=== PATIENT | male | born 1975 | race Caucasian/White ===

== ENCOUNTER 2022-10-07 01:09 | Emergency (ER) | payer OTHER, SELFPAY ==
[2022-10-07] VITALS (13 sets, daily range): BP systolic 158–234; BP diastolic 93–163; PULSE 76–96; RESP 18–26; O2SAT 94–98; BMI 37.5
--- NOTE | ~2022-10-07 | CT_ITS ---
EXAMINATION: CT HEAD WITHOUT CONTRAST CLINICAL INFORMATION: Left hemiparesis. COMPARISON: None. TECHNIQUE: Contiguous axial imaging was performed from the skull base to vertex without intravenous contrast. This CT examination was performed using dose optimization techniques as appropriate, variously including the following: * Automated exposure control * Adjustment of mA and/or kV according to patient size (this includes techniques or standardized protocols for targeted exams where dose is matched to indication/reason for exam; i.e. extremities or head) Use of iterative reconstruction technique DLP: 830 mGy-cm. FINDINGS: There is a prominent intraparenchymal hematoma involving the right frontal and temporal lobes. This is centered at the putamen. This measures 6.7 x 3 x 5 cm. There is significant mass effect with effacement of the frontal horn of the right lateral ventricle. There is leftward midline shift of 0.9 cm . No evidence of territorial infarction. Bryson to white matter differentiation is well preserved. No extra-axial fluid collections are identified. No hydrocephalus. No significant volume loss. The osseous structures and soft tissues are normal. The mastoid air cells and visualized portions of the paranasal sinuses are well aerated. CT/CT head for stroke IMPRESSION: Prominent right cerebral intraparenchymal hemorrhage with significant localized mass effect resulting in leftward midline shift. This critical result was discussed with Alfonso Beckham MD by telephone at 10/07/2022 1:24 AM and it was ascertained that the content and urgency of the report was understood at the time of direct communication.
--- NOTE | 2022-10-07 01:12 | ECG_ITS ---
Test Reason : skoke Blood Pressure : / mmHG Vent. Rate : 087 BPM Atrial Rate : 087 BPM P-R Int : 154 ms QRS Dur : 114 ms QT Int : 310 ms P-R-T Axes : 029 -29 130 degrees QTc Int : 373 ms Normal sinus rhythm Possible Left atrial enlargement Left ventricular hypertrophy with repolarization abnormality ( R in aVL , Lee product , Romhilt-Shearer ) Abnormal ECG No previous ECGs available Referred By: Alfonso Beckham Electronically Signed By:Star Moss
[2022-10-07 01:17] LABS: Glucose, Whole Blood 210 mg/dL (60-115)
[2022-10-07 01:21] LABS: Basophils Absolute Auto 0.1 X10*3/uL (0.0-0.2); Basophils Percent Auto 0.6 % (0-2); Eosinophils Absolute Auto 0.5 X10*3/uL (0.0-0.4); Eosinophils Percent Auto 3.1 % (0-4); Hematocrit 46.3 % (42.0-52.0); Hemoglobin 16.1 g/dl (14.0-18.0); Imm Gran Abs Auto 0.07 X10*3/uL (0.00-0.03); Imm Gran Pct Auto 0.4 % (0.0-0.4); Lymphocytes Absolute Auto 2.2 X10*3/uL (1.2-4.9); Lymphocytes Percent Auto 13.7 % (20-40); MANUAL DIFF FLAG SCAN; Mean Corpuscular HGB Conc 34.8 g/dl (31.0-36.0); Mean Corpuscular Hemoglobin 29.3 pg (27.0-33.0); Mean Corpuscular Volume 84.2 fL (80.0-98.0); Mean Platelet Volume 9.6 fL (9.4-12.4); Monocytes Absolute Auto 1.7 X10*3/uL (0.1-1.2); Monocytes Percent Auto 10.8 % (2-11); Neutrophils Absolute Auto 11.3 x10*3/uL (2.0-8.3); Neutrophils Percent Auto 71.4 % (45-73); Platelet Count 255 X10*3/uL (160-400); Red Cell Distribution Width 13.1 % (11.0-16.0); SCAN SMEAR FLAG 1; White Blood Count 15.9 X10*3/uL (4.8-10.8)
[2022-10-07] MEDS: Labetalol HCL 100 MG/20 ML VIAL 20 MG IVPUSH (01:22)
[2022-10-07] MEDS: ondansetron HCL 4 MG/2 ML VIAL IVPUSH (01:22)
--- NOTE | 2022-10-07 01:22 | ED.NEUROSD ---
HPI - Neuro Symptoms/Deficit General Chief Complaint: Stroke Stated Complaint: stroke like symptoms Time Seen by Provider: 10/07/22 01:11 Source: EMS Mode of arrival: EMS Limitations: altered mental status History of Present Illness HPI Narrative: Patient with no known significant medical history last known well time was 21:30 and he went to bed just prior to arrival patient had a sneezing try to get up and slumped down noticed to have left-sided weakness no signs of significant head injury no seizures blood pressure per EMS was 206/163 patient not on any anticoagulants or any medications Related Data Allergies Allergy/AdvReac Type Severity Reaction Status Date / Time No Known Allergies Allergy Verified 10/07/22 01:11 Review of Systems Review of Systems: Yes Unobtainable due to mental status PMFSH Social History Social History Advance Directives: No Advance Directives Information Provided: No Physical Exam Vital Signs: Vital Signs: Last Vital Signs Pulse 95 10/07/22 02:16 Resp 20 10/07/22 02:12 BP 158/93 H 10/07/22 02:16 Pulse Ox 98 10/07/22 02:12 O2 Del Method 10/07/22 02:12 O2 Flow Rate 2 10/07/22 02:12 BMI result Body Mass Index 37.5 Appearance: Lethargic able to open his eyes to verbal commands GCS of 14 Eyes: PERRLA, No Nystagmus ENT: Pharynx normal. Oral Mucosa moist Neck: Normal inspection. Neck supple. CVS: Normal heart rate and rhythm. Pulses normal. Respiratory: No respiratory distress. Equal air entry bilateral, no wheezing/rales/rhonchi Abdomen: Soft and nontender. Bowel sounds are present, no mass palpable, no CVA tenderness Skin: Skin warm and dry. Normal skin color. Normal skin turgor. Extremities: No lower extremity edema. No calf tenderness Neuro: Lethargic able to answer questions with slurred speech. Left-sided dense hemiparesis.No cerebellar signs , left facial droop Course Reevaluation(s) Reevaluation #1: Patient with right intracerebral bleed IV Decadron 10 mg Keppra 1000 mg labetalol 20 mg were given and started him on nicardipine drip for blood pressure of 190/110 Time: 01:36 Reevaluation #2: blood pressure 158/93 pulse rate 95 GCS of 14 case discussed with [facility] neuro will admit the patient under Dr. Wells in MICU patient is on nicardipine drip Time: 02:16 Medications Administered Discontinued Medications Generic Name Dose Route Start Last Admin Trade Name Freq PRN Reason Stop Dose Admin Dexamethasone Sodium Phosphate 10 mg 10/07/22 01:34 10/07/22 01:45 Dexamethasone Sod Phosphate 10 Mg/Ml Vial IVPUSH 10/07/22 01:35 10 mg ONCE ONE Administration Nicardipine HCl 25 mg/ Sodium 260 mls @ 0 mls/hr 10/07/22 01:30 10/07/22 02:00 Chloride IVCONT 12.5 mg/hr .Q0M NIKUNJ 130 mls/hr Titration Protocol Per Protocol Levetiracetam 1,000 mg in 100 mls @ 400 mls/hr 10/07/22 01:34 10/07/22 01:45 Keppra IV 10/07/22 01:48 400 mls/hr ONCE ONE Administration Potassium Chloride 10 meq in 100 mls @ 100 mls/hr 10/07/22 01:49 10/07/22 02:04 Potassium Chloride/H20 IV 10/07/22 02:48 100 mls/hr ONCE ONE Administration Labetalol HCl 20 mg 10/07/22 01:17 10/07/22 01:22 Labetalol Hcl 100 Mg/20 Ml Vial IVPUSH 10/07/22 01:18 20 mg ONCE ONE Administration Ondansetron HCl 4 mg 10/07/22 01:19 10/07/22 01:22 Ondansetron Hcl 4 Mg/2 Ml Vial IVPUSH 10/07/22 01:20 4 mg ONCE ONE Administration Medical Decision Making Medical Decision Making MDM Narrative: Patient with dense left hemiparesis secondary to significant right intracerebral hemorrhage with midline shift of 9 mm with mass effect. Patient blood pressure was elevated to 206/163 GCS of 14 was given labetalol 20 mg will start a nicardipine drip at target systolic blood pressure 140 Lab Data [facility] Lab Attestation statement: I reviewed the patient's lab results. 10/07/22 01:10 10/07/22 01:10 Labs: Lab Results 10/07/22 10/07/22 10/07/22 Range/Units 01:10 01:10 01:10 WBC 15.9 H (4.8-10.8) X10*3/uL RBC 5.50 (4.60-5.80) X10*6/uL Hgb 16.1 (14.0-18.0) g/dl Hct 46.3 (42.0-52.0) % MCV 84.2 (80.0-98.0) fL MCH 29.3 (27.0-33.0) pg MCHC 34.8 (31.0-36.0) g/dl RDW 13.1 (11.0-16.0) % Plt Count 255 (160-400) X10*3/uL MPV 9.6 (9.4-12.4) fL Immature Gran % (Auto) 0.4 (0.0-0.4) % Neut % (Auto) 71.4 (45-73) % Lymph % (Auto) 13.7 L (20-40) % Cottle % (Auto) 10.8 (2-11) % Eos % (Auto) 3.1 (0-4) % Baso % (Auto) 0.6 (0-2) % Lymph # (Auto) 2.2 (1.2-4.9) X10*3/uL Cottle # (Auto) 1.7 H (0.1-1.2) X10*3/uL Eos # (Auto) 0.5 H (0.0-0.4) X10*3/uL Baso # (Auto) 0.1 (0.0-0.2) X10*3/uL Abs Immat Gran (auto) 0.07 H (0.00-0.03) X10*3/uL Absolute Neuts (auto) 11.3 H (2.0-8.3) x10*3/uL Absolute Nucleated RBC 0.000 (0.0-0.012) X10*3/uL Nucleated RBC % (auto) 0.0 (0.0-0.2) /100WBC Smear Tech's Comments VERIFIED PT 11.6 (10.0-13.1) SEC Whole Blood PT (11.1-13.5) sec INR 1.0 (0.9-1.1) Whole Blood INR (0.9-1.1) APTT 34.1 (26.0-36.4) SEC Sodium 140 (135-145) mmol/L Potassium 2.8 L (3.3-5.1) mmol/L Chloride 101 (96-108) mmol/L Carbon Dioxide 24 (22-29) mmol/L Anion Gap 18 (12-20) BUN 15 (9-16) mg/dL Creatinine 1.22 (0.5-1.4) mg/dL Estim Creat Clear Calc 92.6 Estimated GFR > 60 POC Glucose (60-115) mg/dL Random Glucose 203 H (60-115) mg/dL Calcium 9.3 (8.4-10.2) mg/dL Magnesium 1.7 (1.6-2.6) mg/dL Total Creatine Kinase 111 (38-174) U/L Troponin I High Sens (<3.5-35.0) ng/L Ethyl Alcohol < 10 mg/dL COVID-19 (MEEK) (Negative) COVID-19 Clin Com 10/07/22 10/07/22 10/07/22 Range/Units 01:10 01:12 01:20 WBC (4.8-10.8) X10*3/uL RBC (4.60-5.80) X10*6/uL Hgb (14.0-18.0) g/dl Hct (42.0-52.0) % MCV (80.0-98.0) fL MCH (27.0-33.0) pg MCHC (31.0-36.0) g/dl RDW (11.0-16.0) % Plt Count (160-400) X10*3/uL MPV (9.4-12.4) fL Immature Gran % (Auto) (0.0-0.4) % Neut % (Auto) (45-73) % Lymph % (Auto) (20-40) % Cottle % (Auto) (2-11) % Eos % (Auto) (0-4) % Baso % (Auto) (0-2) % Lymph # (Auto) (1.2-4.9) X10*3/uL Cottle # (Auto) (0.1-1.2) X10*3/uL Eos # (Auto) (0.0-0.4) X10*3/uL Baso # (Auto) (0.0-0.2) X10*3/uL Abs Immat Gran (auto) (0.00-0.03) X10*3/uL Absolute Neuts (auto) (2.0-8.3) x10*3/uL Absolute Nucleated RBC (0.0-0.012) X10*3/uL Nucleated RBC % (auto) (0.0-0.2) /100WBC Smear Tech's Comments PT (10.0-13.1) SEC Whole Blood PT 11.2 (11.1-13.5) sec INR (0.9-1.1) Whole Blood INR 0.9 (0.9-1.1) APTT (26.0-36.4) SEC Sodium (135-145) mmol/L Potassium (3.3-5.1) mmol/L Chloride (96-108) mmol/L Carbon Dioxide (22-29) mmol/L Anion Gap (12-20) BUN (9-16) mg/dL Creatinine (0.5-1.4) mg/dL Estim Creat Clear Calc Estimated GFR POC Glucose 210 H (60-115) mg/dL Random Glucose (60-115) mg/dL Calcium (8.4-10.2) mg/dL Magnesium (1.6-2.6) mg/dL Total Creatine Kinase (38-174) U/L Troponin I High Sens 39.9 H (<3.5-35.0) ng/L Ethyl Alcohol mg/dL COVID-19 (MEEK) (Negative) COVID-19 Clin Com 10/07/22 Range/Units 01:31 WBC (4.8-10.8) X10*3/uL RBC (4.60-5.80) X10*6/uL Hgb (14.0-18.0) g/dl Hct (42.0-52.0) % MCV (80.0-98.0) fL MCH (27.0-33.0) pg MCHC (31.0-36.0) g/dl RDW (11.0-16.0) % Plt Count (160-400) X10*3/uL MPV (9.4-12.4) fL Immature Gran % (Auto) (0.0-0.4) % Neut % (Auto) (45-73) % Lymph % (Auto) (20-40) % Cottle % (Auto) (2-11) % Eos % (Auto) (0-4) % Baso % (Auto) (0-2) % Lymph # (Auto) (1.2-4.9) X10*3/uL Cottle # (Auto) (0.1-1.2) X10*3/uL Eos # (Auto) (0.0-0.4) X10*3/uL Baso # (Auto) (0.0-0.2) X10*3/uL Abs Immat Gran (auto) (0.00-0.03) X10*3/uL Absolute Neuts (auto) (2.0-8.3) x10*3/uL Absolute Nucleated RBC (0.0-0.012) X10*3/uL Nucleated RBC % (auto) (0.0-0.2) /100WBC Smear Tech's Comments PT (10.0-13.1) SEC Whole Blood PT (11.1-13.5) sec INR (0.9-1.1) Whole Blood INR (0.9-1.1) APTT (26.0-36.4) SEC Sodium (135-145) mmol/L Potassium (3.3-5.1) mmol/L Chloride (96-108) mmol/L Carbon Dioxide (22-29) mmol/L Anion Gap (12-20) BUN (9-16) mg/dL Creatinine (0.5-1.4) mg/dL Estim Creat Clear Calc Estimated GFR POC Glucose (60-115) mg/dL Random Glucose (60-115) mg/dL Calcium (8.4-10.2) mg/dL Magnesium (1.6-2.6) mg/dL Total Creatine Kinase (38-174) U/L Troponin I High Sens (<3.5-35.0) ng/L Ethyl Alcohol mg/dL COVID-19 (MEEK) Negative (Negative) COVID-19 Clin Com See Note Independent Interpretation I performed an independent interpretation of an: EKG Interpretation: No sinus rhythm LVH heart rate 87 beats per minute no acute ST T wave changes no acute ischemia Radiology Impression Discussion of test interpretation with radiology: I discussed test interpretation with the radiologist Radiologist Impression: [id number] [place] [address] CT Scan Report Signed Patient: Pato Wynn MR#: [id number] : 1975 Acct:[id number] Age/Sex: 47 / M ADM Date: 10/07/22 Loc: HO.ED Attending Dr: Ordering Physician: Alfonso Beckham MD Date of Service: 10/07/22 Procedure(s): CT head for stroke Accession Number(s): [id number] cc: Alfonso Beckham MD~ EXAMINATION: CT HEAD WITHOUT CONTRAST CLINICAL INFORMATION: Left hemiparesis. COMPARISON: None. TECHNIQUE: Contiguous axial imaging was performed from the skull base to vertex without intravenous contrast. This CT examination was performed using dose optimization techniques as appropriate, variously including the following: *? Automated exposure control *? Adjustment of mA and/or kV according to patient size (this includes techniques or standardized protocols for targeted exams where dose is matched to indication/reason for exam; i.e. extremities or head) Use of iterative reconstruction technique DLP: 830 mGy-cm. FINDINGS: There is a prominent intraparenchymal hematoma involving the right frontal and temporal lobes. This is centered at the putamen. This measures 6.7 x 3 x 5 cm. There is significant mass effect with effacement of the frontal horn of the right lateral ventricle. There is leftward midline shift of 0.9 cm . No evidence of territorial infarction. Bryson to white matter differentiation is well preserved. No extra-axial fluid collections are identified. No hydrocephalus. No significant volume loss. The osseous structures and soft tissues are normal. The mastoid air cells and visualized portions of the paranasal sinuses are well aerated. ? CT/CT head for stroke IMPRESSION: Prominent right cerebral intraparenchymal hemorrhage with significant localized mass effect resulting in leftward midline shift. ? This critical result was discussed with Alfonso Beckham MD by telephone at 10/07/2022 1:24 AM and it was ascertained that the content and urgency of the report was understood at the time of direct communication. Dictated By: Mukesh Jones MD Signed By: <Electronically signed by Mukesh Jones MD in OV> NIH Stroke Scale Internal: Initial- Upon Arrival Level of Consciousness: Alert Level of Consciousness Questions: Answers neither question correctly Level of Consciousness Commands: Performs both tasks correctly Best Gaze: Normal Visual: No visual loss Facial Palsy: Minor paralyis Motor Arm (Right): No drift Motor Arm (Left): Drift Motor Leg (Right): No drift Motor Leg (Left): Drift Limb Ataxia: Absent Sensory: Normal Best Language: Mild to moderate aphasia Dysarthia: Mild to moderate dysarthria Extinction and Inattention: Profound zeferino-inattention or extinction to more than one modality Score: 9 Critical Care Time Critical Care Time Critical Care Time: Yes Total Critical Care Time: 40 Attestation: The patient was critically ill with a high probability of imminent or life threatening deterioration. I spent greater than 45 minutes of discontinuous time evaluating the patient,delivering critical care at the bedside, discussing and evaluating pertinent data with consultants. Critical care time does not include time spent performing separately billable procedures or teaching. Total time spent performing critical care was 40 minutes. Discharge Plan Discharge Clinical Impression: Acute intracerebral hemorrhage, Hypertensive emergency [facility] to [facility] MICU under Dr. Wells Interventions: Acute Care Transfer Worksheet (ED) Last Done: 10/07/22 03:11 Discharge Date/Time: 10/07/22 02:45
[2022-10-07] MEDS: niCARdipine HCL 25 MG in 0.9 % Sodium Chloride 250 ML 52 MG IVCONT (01:24)
[2022-10-07 01:27] LABS: Prothrombin Time Whole Bld POC 11.2 sec (11.1-13.5); ~PT, ~INR - Anti Coag Clinic 0.9 (0.9-1.1)
[2022-10-07 01:27] LABS: Prothrombin Time 11.6 SEC (10.0-13.1); Stroke Lab Use COMPLETE
--- NOTE | 2022-10-07 01:28 | MHC.EDTECH ---
Call out to [facility] Transfer line @[phone]
[2022-10-07 01:29] LABS: Partial Thromboplastin Time 34.1 SEC (26.0-36.4)
--- NOTE | 2022-10-07 01:33 | PC.NURSE ---
Patient BIBA, patient is minimally responsive, opens his eyes when called by name. Dr. Breen assessed patient. 18 G line in R AC placed by EMS. Stroke labs drawn per protocol, COVID swab competed. POC and INR vi coagucheck competed. Patient sent to CT scan. Patient brought to ED room, patient placed on property damage claims adjustor. Patient vomited small amount white, foamy vomitus. Zofran and Labetalol administered. Cardizem drip started.
[2022-10-07 01:37] LABS: Anion Gap 18 (12-20); Blood Urea Nitrogen 15 mg/dL (9-16); Calcium 9.3 mg/dL (8.4-10.2); Carbon Dioxide 24 mmol/L (22-29); Chloride 101 mmol/L (96-108); Creatinine Clr Calc Pharmacy 92.6; Estimated Glomerular Filt Rate > 60; Glucose Random 203 mg/dL (60-115); Magnesium 1.7 mg/dL (1.6-2.6); Potassium 2.8 mmol/L (3.3-5.1); Sodium 140 mmol/L (135-145)
[2022-10-07 01:41] LABS: Troponin-I High Sensitivity 39.9 ng/L (<3.5-35.0)
--- NOTE | 2022-10-07 01:42 | PC.NURSE ---
verbal order from dr ojeda. titrate nicardipine 10. bp 184/115 map 145 hr 83
[2022-10-07] MEDS: levETIRAcetam in NaCl (iso-os) 1,000 MG/100 ML PIGGYBACK 400 MG IV (01:45)
[2022-10-07] MEDS: dexAMETHasone sod phosphate 10 MG/ML VIAL IVPUSH (01:45)
[2022-10-07 01:49] LABS: SLIDE REVIEW VERIFIED
[2022-10-07 01:52] LABS: COVID-19 Test Negative (Negative); IDNOW Serial# BCCEAD1C
[2022-10-07] MEDS: Potassium Chloride/H20 10 MEQ/100 ML PIGGYBACK 100 MEQ IV (02:04)
[2022-10-07 02:05] LABS: Ethanol < 10 mg/dL
--- NOTE | 2022-10-07 02:20 | MHC.EDTECH ---
[facility] bed assignment [facility] 4B RM 24 accepting nurse to nurse [phone]
--- NOTE | 2022-10-07 02:45 | PC.NURSE ---
nurse to nurse report given to hanh da silva curriculum writer. pt transported via ems
== END 2022-10-07 02:45 | disposition short-term general hospital (02) ==
PROVIDERS: Emergency Provider Internal Medicine
DX: I61.8 Other nontraumatic intracerebral hemorrhage (principal); R29.709 NIHSS score 9; R47.81 Slurred speech; R29.810 Facial weakness; G81.94 Hemiplegia, unspecified affecting left nondominant side; R53.83 Other fatigue; Z20.822 Contact with and (suspected) exposure to COVID-19
CPT/HCPCS: 36415; 70450; 80048; 82077; 82550; 82947; 83735; 84484; 85025; 85610; 85730; 87635; 93005; 96365; 96375; 99285; J1100; J1953; J2405